=== PATIENT | female | born 1975 | race Caucasian/White ===

== ENCOUNTER 2022-05-06 13:06 | Outpatient (CLI) | payer BC | END 2022-05-06 13:07 | disposition home or self-care (01) | LOC: BICULT 13:06 | PROVIDERS: ATTEND Family Medicine | DX: N63.15 Unspecified lump in the right breast, overlapping quadrants (principal) ==

== ENCOUNTER 2025-09-02 08:56 | Outpatient (CLI) | payer BC ==
[2025-09-02 09:51] LABS: #Basophils 0.03 10x3/uL (0.0-0.2); #Eosinophils 0.13 10x3/uL (0.0-0.7); #Monocytes 0.32 10x3/uL (0.11-0.59); #Neutrophils 3.55 10x3/uL (1.40-6.50); %Basophils 0.5 % (0.0-1.0); %Eosinophils 2.2 % (0.0-10.0); %Lymphocytes 31.6 % (21.0-51.0); %Monocytes 5.4 % (0.0-10.0); %Neutrophils 60.0 % (42.0-75.0); Hematocrit 38.8 % (36.0-47.0); Hemoglobin 12.1 g/dL (12.0-16.0); Mean Corpuscular Hemoglobin 23.8 pg (27.0-31.0); Mean Corpuscular Volume 76.4 fL (78.0-98.0); Platelet Count 291 10x3/uL (130-400); Red Blood Cell (RBC) Count 5.08 mill/uL (4.20-5.40); White Blood Cell (WBC) Count 5.92 10x3/uL (4.8-10.8)
[2025-09-02 10:11] LABS: Anion Gap 12 mmol/L (10-20); BUN (Urea Nitrogen) 11 mg/dL (7.0-18.7); Calc. Creatinine Clearance 0 mL/min (70-130); Calcium 9.1 mg/dL (7.8-10.44); Carbon Dioxide 26 mmol/L (22-29); Chloride 107 mmol/L (98-107); Glucose 145 mg/dL (70-105); Potassium 4.3 mmol/L (3.5-5.1); Sodium 141 mmol/L (136-145)
== END 2025-09-02 08:57 | disposition home or self-care (01) ==
LOC: LABBT 08:56
PROVIDERS: ATTEND Orthopaedic Surgery
DX: Z01.818 Encounter for other preprocedural examination (principal); M75.102 Unspecified rotator cuff tear or rupture of left shoulder, not specified as traumatic
CPT/HCPCS: 80048; 85025; 93005; 93010

== ENCOUNTER 2025-09-07 09:42 | Day surgery (SDC) | payer BC ==
[2025-09-02 09:09] VITALS: BMI 30.8
[2025-09-07] MEDS ORDERED: Ropivacaine 0.2% HCl/PF 20 ML ONE (10:23)
[2025-09-07] MEDS ORDERED: Ropivacaine 0.5% HCl/PF (150 MG/30 ML VIAL) ONE (10:23)
[2025-09-07] MEDS ORDERED: Lidocaine 1% (PF) 30 ML VIAL ONE (10:51)
[2025-09-07] MEDS ORDERED: fentaNYL PF 100 MCG/2 ML SYRINGE ONE (11:00)
[2025-09-07] MEDS ORDERED: Ropivacaine 0.2% 550 ML 550 ML NERVE BLCK SCH (11:30)
[2025-09-07] MEDS ORDERED: Ondansetron PF 4 MG/2 ML Vial IVP PRN (11:30)
[2025-09-07] MEDS ORDERED: HYDROcodone/Acetaminophen 10/325 mg Tablet PO PRN ×2 (11:30)
[2025-09-07] MEDS ORDERED: Famotidine/PF 20 mg/2ml Vial ONE (11:34)
[2025-09-07] MEDS ORDERED: Rocuronium Bromide 10 MG/ML (10ML VIAL) ONE (11:50)
[2025-09-07] MEDS ORDERED: Ketorolac Tromethamine 30 MG (1 mL) VIAL IVP SCH (12:00)
[2025-09-07] MEDS ORDERED: Ondansetron PF 4 MG/2 ML Vial ONE ×2 (12:00→14:31)
[2025-09-07] MEDS ORDERED: SUGAMMADEX SODIUM 200 MG/2 ML VIAL ONE (12:09)
== END 2025-09-07 15:18 | disposition home or self-care (01) ==
LOC: SDC 09:42
PROVIDERS: ATTEND Orthopaedic Surgery
PROC: 0RBK4ZZ Excision of Left Shoulder Joint, Percutaneous Endoscopic Approach (ICD-10-PCS; principal; 2025-09-07)
PROC: 3E0T3BZ Introduction of Anesthetic Agent into Peripheral Nerves and Plexi, Percutaneous Approach (ICD-10-PCS; principal; 2025-09-07)
PROC: 0LS40ZZ Reposition Left Upper Arm Tendon, Open Approach (ICD-10-PCS; principal; 2025-09-07)
DX: S46.112A Strain of muscle, fascia and tendon of long head of biceps, left arm, initial encounter (principal); M65.912 Unspecified synovitis and tenosynovitis, left shoulder; E11.9 Type 2 diabetes mellitus without complications; F41.9 Anxiety disorder, unspecified; Z90.89 Acquired absence of other organs; Z90.49 Acquired absence of other specified parts of digestive tract; Z88.8 Allergy status to other drugs, medicaments and biological substances; Z79.85 Long-term (current) use of injectable non-insulin antidiabetic drugs; Z79.84 Long term (current) use of oral hypoglycemic drugs; Z79.899 Other long term (current) drug therapy; X58.XXXA Exposure to other specified factors, initial encounter
CPT/HCPCS: A4306; C1713; J0169; J1100; J1308; J2003; J2250; J2405; J2704; J2795; J3010